=== PATIENT | female | born 1985 | race Caucasian/White ===

== ENCOUNTER 2016-09-30 14:10 | Inpatient (IN) | payer SELFPAY ==
[2016-09-30] MEDS ORDERED: 0.9 % SODIUM CHLORIDE 1,000 ML BAG IV ONE ×2 (15:16→16:07)
[2016-09-30] MEDS ORDERED: ONDANSETRON HCL IV 4 MG/2 ML VIAL IVP ONE (15:17)
[2016-09-30 15:25] LABS: HEMATOCRIT 36.5 % (35.0-47.0); HEMOGLOBIN 12.6 gm/dl (11.6-16.0); MEAN CELL VOLUME 97.3 fl (81-97); MEAN CORPUSCULAR HEMOGLOBIN 33.6 pg (27-33); MEAN CORPUSCULAR HGB CONC 34.5 g/dl (32-36); PLATELET COUNT 188 K/uL (130-400); RED BLOOD COUNT 3.75 M/uL (3.80-5.40); RED CELL DISTRIBUTION WIDTH 12.1 % (11.5-14.5); WHITE BLOOD COUNT W/O DIFF 18.7 K/uL (4.2-12.2)
[2016-09-30 15:38] LABS: ALB/GLOB RATIO 1.4 (1.1-1.8); ALKALINE PHOSPHATASE 54 U/L (38-126); ALT/SGPT 26 U/L (9-52); ANION GAP 10.4 (7-16); AST/SGOT 13 U/L (14-36); BILIRUBIN,TOTAL 1.38 mg/dL (0.2-1.3); BLOOD UREA NITROGEN 7 mg/dL (7-17); CARBON DIOXIDE 19.6 mmol/L (22-30); CREATININE 0.8 mg/dL (0.52-1.04); EST GLOMERULAR FILTRATION RATE > 60 ml/min; GLUCOSE,RANDOM 124 mg/dL (70-110); TOTAL PROTEIN 6.8 gm/dL (6.3-8.2)
[2016-09-30] MEDS ORDERED: ACETAMINOPHEN 1,000 MG/100 ML BTL IVPB ONE (16:07)
[2016-09-30] MEDS ORDERED: SOD CHLOR 0.9% WITH KCL 40MEQ 40 MEQ/1,000 ML IV.SOLN IV ONE (16:24)
[2016-09-30] MEDS ORDERED: POTASSIUM CHLORIDE 20 MEQ TABLET PO ONE (16:25)
--- NOTE | 2016-09-30 17:20 | Emergency Department Record ---
History of Present Illness - General Chief complaint: Nausea, Vomiting, Diarrhea Stated complaint: VOMITTING Time Seen by Provider: 09/30/16 15:10 Source: Patient Mode of Arrival: Ambulatory Limitations: No limitations - History of Present Illness Initial comments: pt has been vomiting since yesterday and having abd pain and headache... she ate the same food everyone else did. she has no diarrhea MD complaint: Abdominal pain, Nausea, Vomiting Onset/Timin -: Days(s) Description of Vomiting: Bilious Associated Abdominal Pain: No Location: Other Severity: Moderate Severity scale (1-10): 10 Quality: Aching, Constant Consistency: Constant Improves with: None Worsens with: None Associated Symptoms: Fever/chills, Headaches, Loss of appetite, Nausea/vomiting - Related Data Home Medications Medication Instructions Recorded Confirmed Last Taken No Home Med [NO HOME MEDS] 09/30/16 09/30/16 Unknown Allergies Allergy/AdvReac Type Severity Reaction Status Date / Time propoxyphene napsylate Allergy HIVES Verified 09/30/16 14:43 [From MayankHetal] Travel Screening - Travel/Exposure Within Last 30 Days Have you traveled within the last 30 days?: No - Travel/Exposure Within Last Year Have you traveled outside the [place] in the last year?: No - Additonal Travel Details Have you been exposed to anyone with a communicable illness?: No Review of Systems Reviewed: No additional complaints except as noted below Constitutional: Reports: As per HPI. Denies: Chills, Fever, Malaise, Night sweats, Weakness, Weight change Eyes: Reports: As per HPI. Denies: Eye discharge, Eye pain, Photophobia, Vision change ENT: Reports: As per HPI. Denies: Congestion, Dental pain, Ear pain, Epistaxis , Hearing loss, Throat pain Respiratory: Reports: As per HPI. Denies: Cough, Dyspnea, Hemoptysis, Stridor, Wheezes Cardiovascular: Reports: As per HPI. Denies: Arrhythmia, Chest pain, Dyspnea on exertion, Edema, Murmurs, Orthopnea, Palpitations, Paroxysmal nocturnal dyspnea, Rheumatic Fever, Syncope Endocrine: Reports: As per HPI. Denies: Fatigue, Heat or cold intolerance, Polydipsia, Polyuria Gastrointestinal: Reports: As per HPI. Denies: Abdominal pain, Constipation, Diarrhea, Hematemesis, Hematochezia, Melena, Nausea, Vomiting Genitourinary: Reports: As per HPI. Denies: Abnormal menses, Discharge, Dyspareunia, Dysuria, Frequency, Hematuria, Incontinence, Retention, Urgency Musculoskeletal: Reports: As per HPI. Denies: Arthralgia, Back pain, Gout, Joint swelling, Myalgia, Neck pain Skin: Reports: As per HPI. Denies: Bruising, Change in color, Change in hair/ nails, Lesions, Pruritus, Rash Neurological: Reports: As per HPI. Denies: Abnormal gait, Confusion, Headache, Numbness, Paresthesias, Seizure, Tingling, Tremors, Vertigo, Weakness Psychiatric: Reports: As per HPI. Denies: Anxiety, Auditory hallucinations, Depression, Homicidal thoughts, Suicidal thoughts, Visual hallucinations Hematological/Lymphatic: Reports: As per HPI. Denies: Anemia, Blood Clots, Easy bleeding, Easy bruising, Swollen glands Past Medical History - SOCIAL HISTORY Smoking Status: Never smoker Alcohol Use: None Drug Use: None - RESPIRATORY Hx Respiratory Disorders: No - CARDIOVASCULAR Hx Cardio Disorders: No - NEURO Hx Neuro Disorders: No - GI Hx GI Disorders: No - Hx Genitourinary Disorders: No - ENDOCRINE Hx Endocrine Disorders: No - MUSCULOSKELETAL Hx Musculoskeletal Disorders: No - PSYCH Hx Psych Problems: Yes Hx Anxiety: Yes Hx Depression: Yes - HEMATOLOGY/ONCOLOGY Hx Hematology/Oncology Disorders: No Family Medical History Any Significant Family History?: No Physical Exam - General General Appearance: Alert, Oriented x3, Cooperative, Mild distress - Head Head exam: Normal inspection - Eye Eye exam: Normal appearance, PERRL, EOMI Pupils: Normal accommodation - ENT ENT exam: Normal exam, Mucous membranes dry, Normal external ear exam, Normal orophraynx Ear exam: Normal external inspection. negative: External canal tenderness Nasal Exam: Normal inspection. negative: Discharge, Sinus tenderness Mouth exam: Normal external inspection, Tongue normal Teeth exam: Normal inspection. negative: Dental caries Throat exam: Normal inspection. negative: Tonsillar erythema, Tonsillar exudate - Neck Neck exam: Normal inspection, Full ROM. negative: Tenderness - Respiratory Respiratory exam: Normal lung sounds bilaterally. negative: Respiratory distress - Cardiovascular Cardiovascular Exam: Normal rhythm, Normal heart sounds, Tachycardia - GI/Abdominal GI/Abdominal exam: Soft, Normal bowel sounds. negative: Tenderness - Rectal Rectal exam: Deferred - exam: Deferred - Extremities Extremities exam: Normal inspection, Full ROM, Normal capillary refill. negative: Tenderness - Back Back exam: Reports: Normal inspection, Full ROM. Denies: Muscle spasm, Rash noted, Tenderness - Neurological Neurological exam: Alert, CN II-XII intact, Normal gait, Oriented X3 - Psychiatric Psychiatric exam: Normal affect, Normal mood - Skin Skin exam: Dry, Intact, Normal color, Warm Course Vital Signs 09/30/16 09/30/16 09/30/16 14:38 15:24 15:57 Temperature 99.9 F H 101.2 F H Pulse Rate 120 H Pulse Rate [ 99 H 115 H Left Brachial] Respiratory 24 20 20 Rate Blood Pressure 95/66 Blood Pressure 105/64 98/61 [Left Arm] Pulse Ox 97 94 L 98 Medical Decision Making - Lab Data Result diagrams: 09/30/16 15:10 09/30/16 15:10 Lab Results 09/30/16 09/30/16 09/30/16 Range/Units 15:10 15:10 15:10 WBC 18.7 H (4.2-12.2) K/uL RBC 3.75 L (3.80-5.40) M/uL Hgb 12.6 (11.6-16.0) gm/dl Hct 36.5 (35.0-47.0) % MCV 97.3 H (81-97) fl MCH 33.6 H (27-33) pg MCHC 34.5 (32-36) g/dl RDW 12.1 (11.5-14.5) % Plt Count 188 (130-400) K/uL MPV 10.0 (7.4-10.4) fl Neutrophils % 86.0 H (47-80) % Band Neutrophils % 1.0 (0-5) % Eosinophils % Not Reportable Basophils % Not Reportable Lymphocytes 5.0 L (16-45) % Monocytes 8.0 (0-9) % Sodium 134 L (136-145) mmol/L Potassium 3.0 L (3.5-5.1) mmol/L Chloride 104 (98-107) mmol/L Carbon Dioxide 19.6 L (22-30) mmol/L Anion Gap 10.4 (7-16) BUN 7 (7-17) mg/dL Creatinine 0.8 (0.52-1.04) mg/dL Estimated GFR > 60 ml/min Random Glucose 124 H (70-110) mg/dL Calcium 8.6 (8.5-10.1) mg/dL Total Bilirubin 1.38 H (0.2-1.3) mg/dL AST 13 L (14-36) U/L ALT 26 (9-52) U/L Alkaline Phosphatase 54 (38-126) U/L Total Protein 6.8 (6.3-8.2) gm/dL Albumin 4.0 (3.5-5.0) gm/dL Globulin 2.8 (1.4-4.8) gm/dL Albumin/Globulin Ratio 1.4 (1.1-1.8) Lipase 26 (23-300) U/L Disposition Disposition: Admit Clinical Impression: Pyelonephritis Disposition: Still a Patient at [facility] Decision to Admit: Admit from ER Decision to Admit Date: 09/30/16 Decision to Admit Time: 17:49 Forms: Patient Portal Access Quality - Quality Measures Quality Measures: N/A - Blood Pressure Screening Blood Pressure Classification: Normal BP Reading Systolic Measurement: 95 Diastolic Measurement: 66 Screening for High Blood Pressure: < Normal BP, F/U Not Required > [G8783] Normal BP Follow-up Interventions: No follow-up required
[2016-09-30 17:27] LABS: URINE APPEARANCE CLOUDY; URINE BILIRUBIN NEGATIVE (NEGATIVE); URINE BLOOD MODERATE (NEGATIVE); URINE COLOR YELLOW; URINE GLUCOSE (UA) NEGATIVE (NEGATIVE); URINE KETONE 15 mg/dL (NEGATIVE); URINE LEUKOCYTE ESTERASE MODERATE (NEGATIVE); URINE NITRITE POSITIVE (NEGATIVE); URINE PROTEIN TRACE (NEGATIVE)
[2016-09-30 17:29] LABS: HCG,QUALITATIVE URINE NEGATIVE (NEGATIVE)
[2016-09-30 17:34] LABS: URINE BACTERIA 3+; URINE EPITHELIAL CELLS 0 - 2 (FEW)
[2016-09-30] MEDS ORDERED: CIPROFLOXACIN LACTATE/D5W 400 MG/200 ML BAG IVPB ONE (17:48)
[2016-09-30] MEDS ORDERED: 0.9 % SODIUM CHLORIDE 1000ML 1,000 ML IV PRN (19:15)
[2016-09-30] MEDS: ACETAMINOPHEN 500 MG TABLET PO PRN (20:37)
[2016-09-30] MEDS: ONDANSETRON HCL IV 4 MG/2 ML VIAL IVP PRN (20:41)
[2016-09-30] MEDS: IBUPROFEN 600 MG TABLET PO PRN (22:39)
[2016-09-30] MEDS: 0.9 % SODIUM CHLORIDE 1000ML 1,000 ML IV PRN (22:41)
[2016-10-01] MEDS: 0.9 % SODIUM CHLORIDE 1000ML 1,000 ML IV PRN ×3 (01:50→20:36)
[2016-10-01] MEDS: IBUPROFEN 600 MG TABLET PO PRN (04:43)
[2016-10-01] MEDS: ONDANSETRON HCL IV 4 MG/2 ML VIAL IVP PRN ×3 (06:53→18:30)
--- NOTE | 2016-10-01 07:40 | CT SCAN REPORT ---
EXAM: CT SCAN OF THE ABDOMEN AND PELVIS WITHOUT CONTRAST HISTORY: LEFT LOWER QUADRANT ABDOMINAL PAIN AND VOMITING FOR THE PAST DAY. PREVIOUS HISTORY OF KIDNEY STONES. TECHNIQUE: Standard CT imaging of the abdomen and pelvis was performed without contrast. Additional coronal and sagittal reformatted images were also performed. Comparison: 07/20/14. FINDINGS: The lung bases are clear. The liver, gallbladder, biliary tree, pancreas, spleen, and adrenal glands are normal. There is left perinephric and periureteral fat stranding. There is no significant hydronephrosis currently. There is no visible obstructing calculus. Differential considerations include recent stone passage versus ascending urinary tract infection. Correlate with the clinical and laboratory findings. The right kidney and ureter are normal. The aorta is normal in caliber. There are scattered nonenlarged retroperitoneal and mesenteric lymph nodes. There is no pathologic lymphadenopathy. The large and small bowel loops including the appendix are normal. There is no pneumoperitoneum or ascites. A 2.5 x 2.2 cm cyst is present within the right ovary. The uterus and left ovary are normal. The urinary bladder is unremarkable. There are no acute osseous abnormalities. A small fat containing umbilical hernia is present. IMPRESSION: 1. LEFT PERIURETERAL AND PERINEPHRIC FAT STRANDING WITH NO CURRENT OBSTRUCTING CALCULUS OR HYDRONEPHROSIS. DIFFERENTIAL CONSIDERATIONS INCLUDE RECENT STONE PASSAGE VERSUS ASCENDING URINARY TRACT INFECTION. 2. 2.5 X 2.2 CM RIGHT OVARIAN CYST. 3. SMALL FAT CONTAINING UMBILICAL HERNIA. JOB NUMBER: [id number] MTDD
[2016-10-01] MEDS ORDERED: CIPROFLOXACIN LACTATE/D5W 400 MG/200 ML BAG IVPB SCH (08:00)
[2016-10-01 08:19] LABS: ANION GAP 7.3 (7-16); BLOOD UREA NITROGEN 5 mg/dL (7-17); CARBON DIOXIDE 17.7 mmol/L (22-30); CREATININE 0.6 mg/dL (0.52-1.04); EST GLOMERULAR FILTRATION RATE > 60 ml/min; GLUCOSE,RANDOM 94 mg/dL (70-110)
[2016-10-01] MEDS: ACETAMINOPHEN 500 MG TABLET PO PRN (08:44)
[2016-10-01] MEDS ORDERED: KETOROLAC 30 MG/ML VIAL IVP ONE (13:34)
[2016-10-01] MEDS ORDERED: PROMETHAZINE HCL 25 MG TABLET PO ONE (13:34)
[2016-10-01] MEDS: CEFTRIAXONE SODIUM 1 GM in 0.9 % SODIUM CHLORIDE 100ML 100 ML IVPB SCH (18:56)
[2016-10-01] MEDS: HYDROCODONE/APAP 5/325MG TABLET PO PRN (19:07)
[2016-10-01] MEDS: TMP/SMZ 160MG/800MG TAB PO SCH (21:33)
[2016-10-02] MEDS: 0.9 % SODIUM CHLORIDE 1000ML 1,000 ML IV PRN ×3 (01:43→13:10)
[2016-10-02] MEDS: CEFTRIAXONE SODIUM 1 GM in 0.9 % SODIUM CHLORIDE 100ML 100 ML IVPB SCH ×2 (05:36→17:07)
[2016-10-02] MEDS: HYDROCODONE/APAP 5/325MG TABLET PO PRN ×2 (08:03→17:01)
[2016-10-02] MEDS ORDERED: ENOXAPARIN 40 MG/0.4 ML SYR SQ SCH (10:00)
[2016-10-02] MEDS: TMP/SMZ 160MG/800MG TAB PO SCH ×2 (10:16→21:21)
--- NOTE | 2016-10-02 11:10 | History and Physical Report ---
CHIEF COMPLAINT: Left-sided abdominal pain and nausea/vomiting. This 31-year-old female presented to the emergency department and was evaluated by Dr. Penny with nausea, vomiting, and fever. Diagnosed with acute pyelonephritis. Her white count was 18,700, hemoglobin 12.6. Her urine revealed WBC too numerous to count, RBCs 10-15, 3+ bacteria, negative test. Her potassium was 3.0, which normalized with oral potassium to 3.6. The patient has not vomited since the ER last night. She is complaining of a headache. PAST MEDICAL HISTORY: She has a history of anxiety and depression. PAST SURGICAL HISTORY: None. SOCIAL HISTORY: Never smoked. No alcohol or drug use. FAMILY HISTORY: Unremarkable. MEDICATIONS: On admission, no home medications. ALLERGIES: DARVOCET. No longer being made. REVIEW OF SYSTEMS: HEENT: No cough, cold, or congestion. No sore throat. No double vision. She does have a headache. Cardiovascular: No chest pain, palpitations, or arrhythmias. Respiratory: No cough, cold, or congestion. Gastrointestinal: See Chief Complaint. She is vomiting and left-sided abdominal pain. Genitourinary: No dysuria, hematuria, or frequency or burning on urination. Musculoskeletal: No joint or bone or arm or extremity abnormalities. Neurological: No CVA, paralysis, or paresthesias. Gynecological: Unremarkable. Endocrine: No diabetes or thyroid disease. Integument: No rash, ulcerative change in moles, or yellow skin. PHYSICAL EXAMINATION: VITAL SIGNS: Height 4 feet 10 inches, weight 142 pounds, temperature was in the emergency department elevated, temperature 102.2, pulse 115, blood pressure 98/61, respiratory rate 20, pulse ox 98% on room air. The most current vitals: Temperature 98.7, pulse 90, blood pressure 83/56, respiratory rate 16, pulse ox 99% on room air. HEENT: Pupils are equal, round, and reactive to light and accommodation. Extraocular muscles intact. Throat is clear. Nose is clear. Tympanic membranes are gupta. NECK: Supple. No jugular venous distention or hepatojugular reflux. No carotid bruits. Thyroid is smooth. CARDIOVASCULAR: Regular rate and rhythm without murmurs, clicks, rubs, or gallops. RESPIRATORY: Clear to auscultation and percussion is equal bilaterally. ABDOMEN: Painful in the left lower quadrant. Soft. No rebound or rigidity. No peritoneal signs. EXTREMITIES: No pitting edema. No cyanosis. No clubbing. Full range of motion. Peripheral pulses good. No nuchal signs on neck exam. BREASTS/GYNECOLOGICAL/RECTAL. Exams deferred. NEUROLOGIC: Cranial nerves II-XII intact. No gross defects. Sensation normal. Strength normal. Deep tendon reflexes equal bilaterally. Babinski negative. MENTAL STATUS: Alert and oriented x3. IMPRESSION: 1. Acute pyelonephritis. 2. headache. 3. Dehydration. 4. Rule out sepsis. PLAN: IV Cipro 400 mg IV q.12 h. Tylenol and Motrin for pain. Staying away from narcotics because of her low blood pressure. INPATIENT CERTIFICATION: Admit to Inpatient Care. Based on my medical assessment and after consideration of patient risk factors, age, comorbidities, and patient presenting symptoms on Acute, I expect this patient will remain in the hospital greater than or equal to 2 midnights, and the services needed warrant inpatient care because of acute pyelonephritis, sepsis, hypotension. ESTIMATED LENGTH OF STAY: 3-4 days. The patient may reasonably be expected to be discharged or transferred to a hospital within 96 hours after admission to [facility]. SERVICES NEEDED: IV antibiotics, IV fluids. I certify that my determination is in accordance with my understanding of Medicare requirements for reasonable and necessary inpatient services. LINDSEY
[2016-10-02] MEDS ORDERED: 0.9 % SODIUM CHLORIDE 1000ML 1,000 ML IV PRN (13:11)
[2016-10-03] MEDS: CEFTRIAXONE SODIUM 1 GM in 0.9 % SODIUM CHLORIDE 100ML 100 ML IVPB SCH (04:47)
--- NOTE | 2016-10-03 07:59 | Discharge Note ---
VTE H&P Assessment - Risk for VTE Risk for VTE: Yes Risk Level: Low Risk Assessment Date: 10/02/16 Risk Assessment Time: 08:00 VTE Orders Placed or Will Be Placed: Yes Discharge Medications - Discharge Medications Prescriptions: Cephalexin [Keflex] 500 mg PO QID #40 cap Sulfamethoxazole/Trimethoprim [Bactrim] 1 each PO BID #20 tab Home Medications: Ambulatory Orders Acetaminophen [Tylenol 500Mg Tab] 1,000 mg PO Q6H PRN 10/03/16 [Last Taken Unknown] Cephalexin [Keflex] 500 mg PO QID #40 cap 10/03/16 [Last Taken Unknown] Ibuprofen [Motrin 600Mg] 600 mg PO Q6H PRN 10/03/16 [Last Taken Unknown] Sulfamethoxazole/Trimethoprim [Bactrim] 1 each PO BID #20 tab 10/03/16 [Last Taken Unknown] Discharge Note - Date Date of Discharge Note: 10/03/16 Condition: (1) Good Instructions: Urinary Tract Infection in Women (DC), Kidney Infection (GEN) Additional Instructions: follow up with Dr. Smith in 5- 10 days drink lots of fluid Forms: Patient Portal Access
--- NOTE | 2016-10-04 14:00 | Discharge Summary ---
DATE OF ADMISSION: 09/30/2016 DATE OF DISCHARGE: 10/03/2016 at 8:03 a.m. DISCHARGE DIAGNOSES: 1. Acute pyelonephritis. 2. Hypotension, resolved. 3. Sepsis, resolved. 4. Headache, which has resolved. ATTENDING PHYSICIAN: Olvin Farris DO REASON FOR HOSPITALIZATION: This 31-year-old female presented with left-sided abdominal pain, nausea, vomiting. This 31-year-old female was seen in the Emergency Department by Dr. Penny and had a fever, nausea, vomiting, and diffuse abdominal pain, but more on the left side. CAT scan did not reveal a stone, possibly a passed stone, but no stones were passed in the hospital. She was diagnosed with pyelonephritis, hypotension. Her blood pressure was running 83/56 in the Emergency Department. SIGNIFICANT FINDINGS: CAT scan of the abdomen and pelvis revealed left periureteral and perinephric fat stranding with no current obstructing calculus or hydronephrosis. Differential consideration included recent stone passage versus an ascending urinary tract infection. A 2 x 5 by 2 x 2 cm right ovarian cyst, small fat-containing umbilical hernia. LABORATORY: The urine culture is still pending. We do not have that back. Initially in the Emergency Department, the white count was 18,700. Hemoglobin was 12.6. The potassium was a little bit low at 3 with her vomiting. It came up to 3.6 the next day. BUN and creatinine have been normal. Last BUN was 5. Creatinine was 0.6. Her urine showing [id number]-count wbc's, rbc's 10-15, bacteria 3+, positive nitrite, and as I said, cultures are still pending at this time. She is doing clinically much better. Will discharge and follow up with the culture if the antibiotics will need to be changed. HOSPITAL COURSE: The patient was started initially on Cipro 400 mg IV every 12 hours. She developed a rash all over. This rash, she said, she gets normally when she gets hot, but it looks kind of like an allergic reaction to antibiotic, so we switched the antibiotic from Cipro to Rocephin and Bactrim. The Rocephin was 1 gram every 2 hours, the Bactrim DS b.i.d., and she continued to improve. CONDITION AT DISCHARGE: Much better. She had severe headaches when she first came in to the hospital, but headaches have resolved. She is feeling much better, eating much better, not requiring any narcotic pain medication. DISCHARGE INSTRUCTIONS: Followup Dr. Smith in 5-10 days. Outpatient antibiotics, Keflex 500 mg q.i.d. for 10 days, Bactrim DS b.i.d. for 10 days, Tylenol or Motrin [id number] p.r.n. for pain. LINDSEY
== END 2016-10-03 09:36 | disposition home or self-care (01) | DRG 690 ==
LOC: ER 14:10 → MEDSURG 19:09
PROVIDERS: ADMIT Emergency Medicine; ATTEND Emergency Medicine
DX: N10 Acute pyelonephritis (principal); B96.20 Unspecified Escherichia coli [E. coli] as the cause of diseases classified elsewhere; L27.1 Localized skin eruption due to drugs and medicaments taken internally; T36.8X5A Adverse effect of other systemic antibiotics, initial encounter; R51 Headache
CPT/HCPCS: 74176; 80048; 80053; 81001; 81025; 83690; 85027; 96361; 96374; 96375; 99223; 99233; 99285; J1650; J1885; J2405; J7030; Q0170

== ENCOUNTER 2017-07-22 10:47 | Emergency (ER) | payer MEDICAID ==
[2017-07-22 11:36] LABS: BASO % 0.3 % (0-6); EOS % 1.3 % (0-6); HEMOGLOBIN 13.3 gm/dl (11.6-16.0); LYMPH % 22.7 % (16-45); MEAN CORPUSCULAR HEMOGLOBIN 33.8 pg (27-33); MEAN CORPUSCULAR HGB CONC 34.1 g/dl (32-36); MEAN PLATELET VOLUME 9.8 fl (7.4-10.4); MONO % 3.7 % (0-9); PLATELET COUNT 242 K/uL (130-400); RED BLOOD COUNT 3.94 M/uL (3.80-5.40); RED CELL DISTRIBUTION WIDTH 12.2 % (11.5-14.5); URINE APPEARANCE CLEAR; URINE BILIRUBIN NEGATIVE (NEGATIVE); URINE BLOOD LARGE (NEGATIVE); URINE COLOR YELLOW; URINE GLUCOSE (UA) NEGATIVE (NEGATIVE); URINE KETONE 15 mg/dL (NEGATIVE); URINE LEUKOCYTE ESTERASE NEGATIVE (NEGATIVE); URINE NITRITE POSITIVE (NEGATIVE); URINE PROTEIN NEGATIVE (NEGATIVE); URINE UROBILINOGEN 0.2 E.U./dL (0.20 - 1.00); WHITE BLOOD COUNT W/O DIFF 9.7 K/uL (4.2-12.2)
--- NOTE | 2017-07-22 11:39 | Emergency Department Record ---
History of Present Illness - General Chief complaint: complication Stated complaint: BLEEDING AND Time Seen by Provider: 07/22/17 11:01 Source: Patient Mode of Arrival: Ambulatory Limitations: No limitations Travel/Exposure to [place] Within 21 Days of Symptoms: No - History of Present Illness Initial comments: pt is 8wks . she is . this am she had a sudden gush of bleeding. no clots or tissue. she has no pain and no cramping MD Complaint: Vaginal bleeding Onset/Timin -: Hour(s) Radiation: None Consistency: Intermittent Associated symptoms: Vaginal bleeding Number of weeks : 8 No complications No complications LMP (females 10-50): 2 months ago Pre-miguelito care: None - Related Data Home Medications Medication Instructions Recorded Confirmed Last Taken No Home Med [NO HOME MEDS] 07/22/17 07/22/17 Unknown Allergies Allergy/AdvReac Type Severity Reaction Status Date / Time diphenhydramine HCl Allergy Mild hives Verified 07/22/17 10:55 [From Benadryl] propoxyphene napsylate Allergy HIVES Verified 07/22/17 10:55 [From Darvocet-N] Past Medical History - SOCIAL HISTORY Smoking Status: Current every day smoker Alcohol Use: None Drug Use: None - RESPIRATORY Hx Respiratory Disorders: No - CARDIOVASCULAR Hx Cardio Disorders: No - NEURO Hx Neuro Disorders: No - GI Hx GI Disorders: No - Hx Genitourinary Disorders: No - ENDOCRINE Hx Endocrine Disorders: No - MUSCULOSKELETAL Hx Musculoskeletal Disorders: No - PSYCH Hx Psych Problems: Yes Hx Anxiety: Yes Hx Depression: Yes - HEMATOLOGY/ONCOLOGY Hx Hematology/Oncology Disorders: No Family Medical History Any Significant Family History?: No Physical Exam - General General Appearance: Alert, Oriented x3, Cooperative, Mild distress - Head Head exam: Normal inspection - Eye Eye exam: Normal appearance, PERRL, EOMI Pupils: Normal accommodation - ENT ENT exam: Normal exam, Mucous membranes moist, Normal external ear exam, Normal orophraynx Ear exam: Normal external inspection. negative: External canal tenderness Nasal Exam: Normal inspection. negative: Discharge, Sinus tenderness Mouth exam: Normal external inspection, Tongue normal Teeth exam: Normal inspection. negative: Dental caries Throat exam: Normal inspection. negative: Tonsillar erythema, Tonsillar exudate - Neck Neck exam: Normal inspection, Full ROM. negative: Tenderness - Respiratory Respiratory exam: Normal lung sounds bilaterally. negative: Respiratory distress - Cardiovascular Cardiovascular Exam: Normal rhythm, Normal heart sounds, Tachycardia - GI/Abdominal GI/Abdominal exam: Soft, Normal bowel sounds. negative: Tenderness - Rectal Rectal exam: Deferred - exam: Normal external exam, Vaginal bleeding (mild) - Extremities Extremities exam: Normal inspection, Full ROM, Normal capillary refill. negative: Tenderness - Back Back exam: Reports: Normal inspection, Full ROM. Denies: Muscle spasm, Rash noted, Tenderness - Neurological Neurological exam: Alert, CN II-XII intact, Normal gait, Oriented X3 - Psychiatric Psychiatric exam: Normal affect, Normal mood - Skin Skin exam: Dry, Intact, Normal color, Warm Course Vital Signs 07/22/17 10:56 Temperature 99.1 F Pulse Rate 103 H Respiratory 20 Rate Blood Pressure 104/93 Pulse Ox 97 Medical Decision Making - Lab Data Result diagrams: 07/22/17 11:24 Disposition Disposition: Discharge Clinical Impression: Threatened in early Disposition: Home, Self-Care Condition: (1) Good Instructions: Threatened Miscarriage (ED) Additional Instructions: follow up with culinary arts teacher. return sooner if worse. no sex for 2 weeks. have repeat beta quant in 2 days Forms: Patient Portal Access Quality - Quality Measures Quality Measures: N/A - Blood Pressure Screening Does Patient Have Any of the Following: No Blood Pressure Classification: Hypertensive Reading Systolic Measurement: 104 Diastolic Measurement: 93 Screening for High Blood Pressure: < Pre-Hypertensive BP, F/U Documented > [ G8950] Pre-Hypertensive Follow-up Interventions: Follow-up with rescreen every year.
[2017-07-22 11:45] LABS: URINE BACTERIA 3+; URINE EPITHELIAL CELLS 0 - 2 (FEW); URINE WBC 0 - 2 (0-2/hpf)
--- NOTE | 2017-07-22 14:07 | Emergency Department Record ---
History of Present Illness - General Chief complaint: complication Stated complaint: BLEEDING AND Time Seen by Provider: 07/22/17 11:01 Source: Patient Mode of Arrival: Ambulatory Limitations: No limitations Travel/Exposure to [place] Within 21 Days of Symptoms: No - History of Present Illness Onset/Timin -: Hour(s) Radiation: None Consistency: Intermittent Associated symptoms: Vaginal bleeding Number of weeks : 8 LMP (females 10-50): 2 months ago Pre- care: None - Related Data Previous Rx's Medication Instructions Recorded Cephalexin [Keflex] 250 mg PO BID #6 capsule 07/22/17 Allergies Allergy/AdvReac Type Severity Reaction Status Date / Time diphenhydramine HCl Allergy Mild hives Verified 07/22/17 10:55 [From Benadryl] propoxyphene napsylate Allergy HIVES Verified 07/22/17 10:55 [From Darvocet-N] Past Medical History - SOCIAL HISTORY Smoking Status: Current every day smoker Alcohol Use: None Drug Use: None - RESPIRATORY Hx Respiratory Disorders: No - CARDIOVASCULAR Hx Cardio Disorders: No - NEURO Hx Neuro Disorders: No - GI Hx GI Disorders: No - Hx Genitourinary Disorders: No - ENDOCRINE Hx Endocrine Disorders: No - MUSCULOSKELETAL Hx Musculoskeletal Disorders: No - PSYCH Hx Psych Problems: Yes Hx Anxiety: Yes Hx Depression: Yes - HEMATOLOGY/ONCOLOGY Hx Hematology/Oncology Disorders: No Family Medical History Any Significant Family History?: No Physical Exam - General Limitations: No limitations Course Vital Signs 07/22/17 07/22/17 10:56 13:17 Temperature 99.1 F Pulse Rate 103 H Pulse Rate [ 84 Left] Respiratory 20 18 Rate Blood Pressure 104/93 Blood Pressure 111/77 [Left Arm] Pulse Ox 97 99 Medical Decision Making - Lab Data Result diagrams: 07/22/17 11:24 Lab Results 07/22/17 07/22/17 07/22/17 Range/Units 11:24 11:24 11:24 WBC 9.7 (4.2-12.2) K/uL RBC 3.94 (3.80-5.40) M/uL Hgb 13.3 (11.6-16.0) gm/dl Hct 39.0 (35.0-47.0) % MCV 99.0 H (81-97) fl MCH 33.8 H (27-33) pg MCHC 34.1 (32-36) g/dl RDW 12.2 (11.5-14.5) % Plt Count 242 (130-400) K/uL MPV 9.8 (7.4-10.4) fl Gran % 72.0 (47-80) % Lymphocytes % 22.7 (16-45) % Monocytes % 3.7 (0-9) % Eosinophils % 1.3 (0-6) % Basophils % 0.3 (0-6) % Total Beta HCG 4577 mIU/mL Urine Color Yellow Urine Appearance Clear Urine pH 7.5 (5.0-8.0) Ur Specific [facility] [place] 1.020 (1.002-1.030) Urine Protein Negative (NEGATIVE) Urine Glucose (UA) Negative (NEGATIVE) Urine Ketones 15 mg/dl H (NEGATIVE) Urine Blood Large H (NEGATIVE) Urine Nitrite Positive H (NEGATIVE) Urine Bilirubin Negative (NEGATIVE) Urine Urobilinogen 0.2 (0.20 - 1.00) E.U./dL Ur Leukocyte Esterase Negative (NEGATIVE) Urine RBC 3 - 6 (NONE SEEN) Urine WBC 0 - 2 (0-2/hpf) Ur Epithelial Cells 0 - 2 (FEW) Urine Bacteria 3+ Disposition Disposition: Discharge Clinical Impression: Threatened in early UTI (urinary tract infection) Qualifiers: Urinary tract infection type: acute cystitis Hematuria presence: without hematuria Qualified Code(s): N30.00 - Acute cystitis without hematuria Disposition: Home, Self-Care Condition: (1) Good Instructions: Threatened Miscarriage (ED) Additional Instructions: follow up with manager security. return sooner if worse. no sex for 2 weeks. have repeat beta quant in 2 days Prescriptions: Cephalexin [Keflex] 250 mg PO BID #6 capsule Forms: Patient Portal Access Quality - Quality Measures Quality Measures: (14-50yr) - : [place] Determination Quality Measure: Measure #254: [place] Determination of Location - : [place] Quality Measure: Measure #255: [place] for Rh-Negative Women ICD10 Codes Entered: Yes - Blood Pressure Screening Does Patient Have Any of the Following: No Blood Pressure Classification: Hypertensive Reading Systolic Measurement: 104 Diastolic Measurement: 93
[2017-07-22] MEDS ORDERED: RHO(D) IMMUNE GLOBULIN 1,500 UNIT DISP.SYRIN IM ONE (14:41)
== END 2017-07-22 13:27 | disposition home or self-care (01) ==
LOC: ER 10:47
DX: O20.0 Threatened abortion (principal); O23.11 Infections of bladder in pregnancy, first trimester; O36.0910 Maternal care for other rhesus isoimmunization, first trimester, not applicable or unspecified; O99.331 Smoking (tobacco) complicating pregnancy, first trimester; N30.01 Acute cystitis with hematuria; F17.210 Nicotine dependence, cigarettes, uncomplicated; Z3A.08 8 weeks gestation of pregnancy
CPT/HCPCS: 99284 ×2; 96372; 85025; 84702; 81001; 86901; J2790

== ENCOUNTER 2017-07-25 16:45 | Emergency (ER) | payer MEDICAID ==
--- NOTE | 2017-07-25 17:25 | Emergency Department Record ---
History of Present Illness - General Chief complaint: complication Stated complaint: PEG/ BLEEDING Time Seen by Provider: 07/25/17 17:06 Source: Patient Mode of Arrival: Ambulatory Limitations: No limitations Travel/Exposure to [place] Within 21 Days of Symptoms: No - History of Present Illness Initial comments: The patient is here due to a 4 day hx of vaginal bleeding. The bleeding was mild then did picker feeder a couple of hours ago and she may have passed some clots. She denies any AP, dysuria, fever, chills, or vomiting but has had lower back cramping. The patient is and 8 weeks pregant by dates. She was in the ER here 3 days ago when this all started and had a Quant HCG of 4577 but no US was available that day. She also is RH neg and did receive Rhogam that day. MD Complaint: Vaginal bleeding Onset/Timin -: Days(s) Radiation: Back Quality: Cramping Consistency: Intermittent Improves with: None Worsens with: None Associated symptoms: Vaginal bleeding Vaginal bleeding: Heavy Number of weeks : 8 Pre-miguelito care: None - Related Data Previous Rx's Medication Instructions Recorded Cephalexin [Keflex] 250 mg PO BID #6 capsule 07/22/17 Allergies Allergy/AdvReac Type Severity Reaction Status Date / Time diphenhydramine HCl Allergy Mild hives Verified 07/25/17 16:48 [From Benadryl] propoxyphene napsylate Allergy HIVES Verified 07/25/17 16:48 [From Darvocet-N] Review of Systems Constitutional: Denies: Chills, Fever Eyes: Denies: Eye discharge ENT: Denies: Congestion Respiratory: Denies: Cough, Dyspnea Past Medical History - SOCIAL HISTORY Smoking Status: Current every day smoker Alcohol Use: None Drug Use: None - RESPIRATORY Hx Respiratory Disorders: No - CARDIOVASCULAR Hx Cardio Disorders: No - NEURO Hx Neuro Disorders: No - GI Hx GI Disorders: No - Hx Genitourinary Disorders: No - ENDOCRINE Hx Endocrine Disorders: No - MUSCULOSKELETAL Hx Musculoskeletal Disorders: No - PSYCH Hx Psych Problems: Yes Hx Anxiety: Yes Hx Depression: Yes - HEMATOLOGY/ONCOLOGY Hx Hematology/Oncology Disorders: No Family Medical History Any Significant Family History?: No Physical Exam - General General Appearance: Alert, Oriented x3, Cooperative, No acute distress - Head Head exam: Atraumatic, Normocephalic, Normal inspection - Eye Eye exam: Normal appearance, PERRL - Neck Neck exam: Normal inspection, Full ROM. negative: Tenderness - Respiratory Respiratory exam: Normal lung sounds bilaterally. negative: Respiratory distress - Cardiovascular Cardiovascular Exam: Regular rate, Normal rhythm, Normal heart sounds - GI/Abdominal GI/Abdominal exam: Soft, Normal bowel sounds. negative: Rebound, Rigid, Tenderness - exam: Normal external exam, Vaginal bleeding (moderate.). negative: Normal speculum exam, Vaginal discharge - Extremities Extremities exam: Normal inspection, Full ROM, Normal capillary refill. negative: Tenderness Course Vital Signs 07/25/17 17:13 Temperature 99.1 F Pulse Rate 117 H Respiratory 20 Rate Blood Pressure 119/84 Pulse Ox 97 - Reevaluation(s) Reevaluation #1: The patient is doing well at this time. Her bleeding has slowed down and she is up walking with no dizziness or lightheadedness. 07/25/17 17:55 Reevaluation #2: The patient is doing very well and is up walking with no heavy bleeding or AP. I did again discuss the plan with her and strongly believe she needs a pelvic US to evaluate the first trimester viability. Due to not having US available here the patient wanted to be transferred to [facility]. I did discuss the case with Dr. Coello in the ER and she does accept the patient in an ER to ER transfer. 07/25/17 18:20 Reevaluation #3: I clearly did instruct the patient to not eat or drink until given the OK at [facility]. 07/25/17 18:32 Reevaluation #4: The patient is RH neg and did receive a full dose of Rhogam 3 days ago. 07/26/17 07:23 Medical Decision Making - Data Complexity [facility] Data: Labs Ordered and/or Reviewed - Lab Data Result diagrams: 07/25/17 17:45 07/25/17 17:45 Disposition Disposition: Discharge Clinical Impression: Threatened in early Disposition: Acute Care Hospital Transfer Transfer To: [facility] Reason For Transfer: [employer] Accepting Physician: Mode Time Discussed w/Accepting Physician: 18:22 Condition: (2) Stable Forms: Patient Portal Access Time of Disposition: 18:22 Quality - Quality Measures Quality Measures: (14-50yr) - : US Determination Quality Measure: Measure #254: US Determination of Location ICD10 Codes Entered: Yes View Details: Yes US Determination of Location: Trans-Abdominal or Trans-Vaginal US NOT Performed w/Reasons [[id number]] Reason for No US: Other (Not available.) - : Rhogam Quality Measure: Measure #255: Rhogam for Rh-Negative Women ICD10 Codes Entered: Yes View Details: Yes Rhogam for Rh-Negative Women at Risk: Rh-immunoglobulin NOT Ordered w/ Reason [[id number]] Reason for not prescribing Rhogam: Other (Patient received it 3 days ago.) - Blood Pressure Screening View Details: Yes Does Patient Have Any of the Following: No Blood Pressure Classification: Normal BP Reading Systolic Measurement: 100 Diastolic Measurement: 73 Screening for High Blood Pressure: < Normal BP, F/U Not Required > [Q3383]
[2017-07-25 17:54] LABS: URINE APPEARANCE CLEAR; URINE BILIRUBIN SMALL (NEGATIVE); URINE BLOOD MODERATE (NEGATIVE); URINE COLOR YELLOW; URINE GLUCOSE (UA) NEGATIVE (NEGATIVE); URINE KETONE 40 mg/dL (NEGATIVE); URINE LEUKOCYTE ESTERASE NEGATIVE (NEGATIVE); URINE NITRITE NEGATIVE (NEGATIVE); URINE PROTEIN TRACE (NEGATIVE)
[2017-07-25 18:08] LABS: URINE EPITHELIAL CELLS 0 - 2 (FEW); URINE MUCUS MODERATE; URINE WBC NONE SEEN (0-2/hpf)
[2017-07-25 18:09] LABS: BASO % 0.3 % (0-6); EOS % 1.1 % (0-6); GRAN % 76.7 % (47-80); HEMATOCRIT 42.6 % (35.0-47.0); HEMOGLOBIN 14.7 gm/dl (11.6-16.0); LYMPH % 16.7 % (16-45); MEAN CELL VOLUME 98.8 fl (81-97); MEAN CORPUSCULAR HEMOGLOBIN 34.1 pg (27-33); MEAN CORPUSCULAR HGB CONC 34.5 g/dl (32-36); MEAN PLATELET VOLUME 9.6 fl (7.4-10.4); MONO % 5.2 % (0-9); PLATELET COUNT 252 K/uL (130-400); RED BLOOD COUNT 4.31 M/uL (3.80-5.40); RED CELL DISTRIBUTION WIDTH 12.2 % (11.5-14.5)
[2017-07-25] MEDS ORDERED: 0.9 % SODIUM CHLORIDE 1,000 ML BAG IV ONE (18:10)
[2017-07-25 18:13] LABS: TOTAL B-hCG 2727 mIU/mL
[2017-07-25 18:18] LABS: BLOOD UREA NITROGEN 8 mg/dL (6-20); CREATININE 0.5 mg/dL (0.5-0.9); EST GLOMERULAR FILTRATION RATE > 60 mL/min
[2017-07-25 18:20] LABS: GLUCOSE,RANDOM 84 mg/dL (74-109)
[2017-07-25] MEDS ORDERED: MORPHINE SULFATE 4MG/ML PREFILLED SYRINGE IVP ONE (18:24)
[2017-07-25] MEDS ORDERED: ONDANSETRON HCL IV 4 MG/2 ML VIAL IVP ONE (18:25)
== END 2017-07-25 18:50 | disposition short-term general hospital (02) ==
LOC: ER 16:45
DX: O20.0 Threatened abortion (principal); O36.0910 Maternal care for other rhesus isoimmunization, first trimester, not applicable or unspecified; O99.331 Smoking (tobacco) complicating pregnancy, first trimester; F17.210 Nicotine dependence, cigarettes, uncomplicated; Z3A.08 8 weeks gestation of pregnancy
CPT/HCPCS: 99285 ×2; 96374; 96375; 96361; 85025; 84702; 80048; 81001; 86901; J2405; J2274; J7030